=== PATIENT | female | born 1955 | race Caucasian/White ===

== ENCOUNTER 2018-04-25 18:54 | Emergency (ER) | payer OTHER, MEDICARE, BC ==
[~2018-04-25] VITALS: Ht 167.6 cm; Wt 56.4 kg
[2018-04-25 19:18] LABS: BASO % 0.3 % (0.0-2.0); EOS % 0.5 % (0-4.0); GRAN # 1.7 (1.4-6.5); GRAN % 45.7 % (42.2-75.2); HEMATOCRIT 41.7 % (37.0-47.0); LYMPH # 1.5 (1.2-3.4); LYMPH % 40.6 % (20.0-51.0); MEAN CELL VOLUME 91 fl (80.0-100.0); MEAN CORPUSCULAR HEMOGLOBIN 31 pg (27.0-31.0); MEAN CORPUSCULAR HGB CONC 34 g/dl (33.0-37.0); MEAN PLATELET VOLUME 10.6 fl (7.4-10.4); MONO # 0.5 (0.1-0.6); MONO % 12.4 % (1.7-9.3); PLATELET COUNT 197 K/mm3 (130-400); RED BLOOD COUNT 4.57 M/mm3 (4.10-5.30); REDCELL DISTRIBUTION WIDTH-CV 12.8 % (11.5-14.5)
[2018-04-25] MEDS ORDERED: VALIUM 5MG T5 MG/TAB PO (19:24)
[2018-04-25] MEDS ORDERED: LASIX 20MG TABL20 MG PO (19:24)
[2018-04-25] MEDS ORDERED: LIORESAL 1010 MG/TAB PO (19:25)
[2018-04-25] MEDS ORDERED: LANTUS100 U/ML SQ (19:26)
[2018-04-25] MEDS ORDERED: NUCYNTA50 MG PO (19:26)
[2018-04-25] MEDS ORDERED: BYDUREON P2 MG/0.65 (19:27)
[2018-04-25] MEDS ORDERED: EFFEXOR 50M50 MG/TAB PO (19:28)
[2018-04-25 19:31] LABS: BILIRUBIN,TOTAL 0.3 mg/dL (0.0-1.0); CALCIUM 9.2 mg/dL (8.4-10.2); POTASSIUM 3.3 mmol/L (3.4-5.0); TOTAL PROTEIN 7.1 gm/dL (6.4-8.2)
[2018-04-25] MEDS ORDERED: DILAUDID 4MG TAB4 MG PO ×2 (21:24→22:17)
[2018-04-25 21:29] LABS: COLLECTION METHOD CLEAN CATCH
[2018-04-25 21:42] LABS: PH 7 (5-8); SQUAMOUS EPITHELIAL 0-2 /hpf; URINE APPEARANCE Hazy; URINE BACTERIA None Seen /hpf; URINE BILIRUBIN Negative (NEGATIVE); URINE BLOOD Negative (NEGATIVE); URINE COLOR Yellow; URINE GLUCOSE Negative (NEGATIVE); URINE KETONE Negative (NEGATIVE); URINE LEUKOCYTE ESTERASE 1+ (NEGATIVE); URINE NITRATE Negative (NEGATIVE); URINE PROTEIN(semi-quant) Negative (NEGATIVE); URINE RBC 0-2 /hpf; URINE UROBILINOGEN Negative (NEGATIVE)
[2018-04-25 22:20] VITALS: BP 105/60; PULSE 60
[2018-04-27] MEDS ORDERED: MACROBID 1100 MG/CAP PO (02:16)
== END 2018-04-25 23:23 | disposition home or self-care (01) ==
LOC: COL.ER 18:54
PROVIDERS: Emergency Medicine
DX: S20.219A Contusion of unspecified front wall of thorax, initial encounter (principal); R91.1 Solitary pulmonary nodule; Z79.4 Long term (current) use of insulin; V43.52XA Car driver injured in collision with other type car in traffic accident, initial encounter
CPT/HCPCS: A9284; J1170; J1885; J2405; J3010; J7030; Q9967